=== PATIENT | female | born 1945 | race Caucasian/White ===

== ENCOUNTER → 2017-12-14 | Outpatient (CLI) | payer MEDICARE ==
[2017-12-14 09:46] VITALS: BP 113/56; PULSE 49; RESP 18; TEMP 96.6; BMI 22.8
--- NOTE | 2017-12-14 11:20 | P.HPOB ---
History of Present Illness H&P Date: 12/14/17 Chief Complaint: The patient's her for her routine gynecologic exam. This is a 71-year-old with an LMP of 1995. The patient status post vaginal hysterectomy for prolapse. The patient states has been many years since her last pelvic exam. She did experience some vulvar symptoms consisting of pruritus about one year ago. More recently it seemed to get worse and she notice small vulvar bumps that were the size of a small BB. She says her told her that the vulva looked red and irritated. There were small areas of bleeding in the skin and she has also noticed the blood after intercourse. She was seen by Angie in Dr. Woodward's office who treated her with clobetasol ointment for suspected lichen sclerosis. She states the vulva is feeling much better and she no longer feels the small bumps. The ointment was given to her on 11/21/2017 and she used it for 2 weeks. She also states she has noticed a small bulge at the vaginal opening in the past which seem to interfere slightly with sexual intercourse. She is not noticing it at this time. Review of Systems Weight has been stable. She denies respiratory, cardiac, or G.I. problems. She denies maltreatment or falling. : she denies any problems with urinary leakage. Past Medical History Past Medical History: Hyperlipidemia Additional Past Medical History / Comment(s): PT STATES HAS A HISTORY OF ABNORMAL HEART RHYTHM, NOT SURE WHICH ONE History of Any Multi-Drug Resistant Organisms: None Reported Past Surgical History: Hysterectomy (Vaginal hysterectomy) Additional Past Surgical History / Comment(s): Colonoscopy 2013. Past Anesthesia/Blood Transfusion Reactions: Previous Problems w/ Anesthesia Additional Past Anesthesia/Blood Transfusion Reaction / Comment(s): STATES VERY SLOW TO WAKE WITH HYSTERECTOMY Past Psychological History: No Psychological Hx Reported Smoking Status: Never smoker Past Alcohol Use History: Occasional (0 to 2 per week) Past Drug Use History: None Reported Additional History: She has been since 1965 and is sexually active. 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 - Past Family History Son(s) Family Medical History: AFIB Additional Family Medical History / Comment(s): CARDIAC ARRHYTHMIA Mother Family Medical History: Cancer (Breast cancer) Additional Family Medical History / Comment(s): Maternal aunt also had breast cancer. A niece had uterine cancer. Medications and Allergies Home Medications Medication Instructions Recorded Confirmed Type Atorvastatin [Lipitor] 20 mg PO DAILY 09/05/14 12/14/17 History Digoxin [Lanoxin] 250 mcg PO DAILY 09/05/14 12/14/17 History Aspirin 81 mg PO DAILY 08/14/15 12/14/17 History Biotin 5,000 mg PO DAILY 08/14/15 12/14/17 History Calcium Carbonate/Vitamin D3 1,200 mg PO DAILY 08/14/15 12/14/17 History [Calcium 600 + Vit D Tablet] Magnesium Citrate 133 mg PO DAILY 08/14/15 12/14/17 History Ubidecarenone [Co Q-10] 100 mg PO DAILY 08/14/15 12/14/17 History Vitamin B Complex 1 tab PO DAILY 08/14/15 12/14/17 History Allergies Allergy/AdvReac Type Severity Reaction Status Date / Time Sulfa (Sulfonamide Allergy Rash/Hives Verified 05/08/16 21:16 Antibiotics) Exam - Vital Signs Vital signs: Vital Signs Temp Pulse Resp BP 12/14/17 09:26 96.6 F L 49 L 18 113/56 12/14/17 09:06 96.6 F L 49 L 18 113/56 Intake and Output 12/13/17 12/14/17 12/14/17 22:59 06:59 14:59 Other: Weight 66.678 kg Height 5'6", BMI 23.7. This is a well-developed well-nourished white female who is alert and oriented times 3 in no acute distress. HEENT: Within normal limits. NECK: Supple without mass or thyromegaly. CHEST AND LUNGS: Clear to auscultation. HEART: Regular rate with repeat heart rate of 60 and regular rhythm. BREASTS: Are without mass or discharge. AXILLARY EXAM: Negative for adenopathy. BACK: Negative for CVA tenderness. ABDOMEN: Soft, nontender, without palpable masses. PELVIC EXAM: External genitalia shows moderate atrophy greatest at the labia minora. There is also slight pallor of the labia minora there is minor excoriation consistent with scratched areas on the right labia majora and just inside the introit us at the 5 o'clock position. There are no masses palpable within the vulva. Vagina appears normal with mild to moderate atrophy. There is no evidence of prolapse at rest. With Valsalva there is a grade 1-2 cystocele. Bimanual examination is negative for mass or tenderness. RECTAL EXAM: Rectovaginal exam is negative for mass or tenderness and is negative for occult blood. EXTREMITIES: Nontender. IMPRESSION: 1. 71-year-old menopausal female with status post vaginal hysterectomy for benign reasons. 2. 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 3. Small intermittent vaginal bleeding after intercourse probably secondary to genital atrophy. 4. Grade 1 to 2 cystocele with Valsalva which is minimally symptomatic. PLAN: 1. Pap smears have been discontinued. 2. Self breast awareness was discussed. 3. Mammogram will be due later this year. She states she has been having them done yearly at [facility]. An order slip was given to the patient for this. 4. The patient will continue to use clobetasol ointment PRN for vulvar pruritus. 5. Estrace vaginal cream 1 to 2 g intravaginaland to the introitus 2 times weekly. A written prescription was given to the patient for this since she would like to check prices at different pharmacies. It was written for one tube to be dispensed with 3 refills. 6. She did get a flu shot this past fall. 7. She was instructed to return if she is having problems with vulvar pruritus , increasing bulge, vaginal bleeding or vulvar lesions. 8. She will return in one year and PRN.
== END | disposition home or self-care (01) ==
LOC: WWCWWP 09:06
PROVIDERS: ATTEND Obstetrics & Gynecology
DX: Z53.9 Procedure and treatment not carried out, unspecified reason (principal)

== ENCOUNTER → 2018-12-28 | Outpatient (CLI) | payer MEDICARE ==
--- NOTE | 2018-12-29 10:48 | BD ---
EXAMINATION TYPE: Axial Bone Density DATE OF EXAM: 12/28/2018 COMPARISON: 06.02.2016 CLINICAL HISTORY: M 89.9 Height: 64 Weight: 140.7 FRAXIN RISK QUESTIONS: Alcohol (3 or more units per day): no Family History (Parent hip fracture): no Glucocorticoids (More than 3mos): no (Ex: prednisone, prednisolone, methylprednisolone, dexamethasone, and hydrocortisone). History of Fracture in Adulthood: no Secondary Osteoporosis: 1. Type 1 Diabetes: no 2. Hyperthyroidism: no 3. Menopause before 45: no 4. Malnutrition: no 5. Chronic liver disease: no Rheumatoid Arthritis: no Current Tobacco Use: no RISK FACTORS HISTORY OF: Family History of Osteoporosis: no Active: yes Diet low in dairy products/other sources of calcium: yes Postmenopausal woman: age 61 Lost more than 2 inches in height since high school: no MEDICATIONS: Lipitor, digit, heart meds, blood pressure meds Additional History: EXAM MEASUREMENTS: Bone mineral densitometry was performed using the [employer] System. Bone mineral density as measured about the Lumbar spine is: ----- L1-L4(G/cm2): 1.256 T Score Values are as follows: ----- L2: 1.6 ----- L3: 1.8 ----- L4: 0.1 ----- L1-L4: 0.6 Bone mineral density has: increased 4.8 % since study of: 06.02.2016 Bone mineral density about the R hip (g/cm2): 0.834 Bone mineral density about the L hip (g/cm2): 0.906 T Score values are as follows: -----R Neck: -1.5 -----L Neck: -0.9 -----R Total: -1.1 -----L Total: -1.2 Bone mineral density has: increased 0.5 % since study of: 06.02.2016 IMPRESSION: Osteopenia (T Score between -2.5 and -1). There is slightly increased risk of fracture and the patient may be considered for treatment. Re-Screen 2-5 years. NOTE: T-SCORE=SD OF THE YOUNG ADULT MEAN.
== END | disposition home or self-care (01) ==
LOC: RADBDWWP 16:19
PROVIDERS: ATTEND Family Medicine
DX: M85.80 Other specified disorders of bone density and structure, unspecified site (principal)
CPT/HCPCS: 77080

== ENCOUNTER → 2020-05-29 | Outpatient (CLI) | payer MEDICARE ==
--- NOTE | 2020-05-29 20:43 | XR ---
EXAMINATION TYPE: XR shoulder complete RT DATE OF EXAM: 05/29/2020 COMPARISON: NONE HISTORY: Pain TECHNIQUE: Shoulder examined in 3 views FINDINGS: The humeral head articulates with the glenoid. The acromio-clavicular junction is normal. No acute fractures or dislocations are evident. A follow up study can be performed 7-10 days from acute trauma for continued pain. IMPRESSION: 1. Normal three-view right Shoulder
== END | disposition home or self-care (01) ==
LOC: RADXRYALE 16:05
PROVIDERS: ATTEND Family Medicine
DX: M25.511 Pain in right shoulder (principal)

== ENCOUNTER → 2021-04-02 | Day surgery (SDC) | payer MEDICARE ==
[2021-04-01 08:44] VITALS: BMI 21.9
[~2021-04-02] MED LIST: GLUCAGON 1 MG/ML VIAL ONE; GLYCOPYRROLATE 0.2 MG/ML 2 ML VIAL ONE; LACTATED RINGERS 1,000 ML IV SCH; LIDOCAINE 1% INJ 10MG/ML (20 ML MDV) ONE; PROPOFOL 10 MG/ML 20 ML VIAL IV ONE
[2021-04-02 10:31] VITALS: RESP 16; TEMP 97.3
--- NOTE | 2021-04-02 11:01 | P.GSHP ---
History of Present Illness H&P Date: 04/02/21 Chief Complaint: GI bleed Is a 75-year-old female who presents today for colonoscopy. Patient issues with GI bleed. Past Medical History Past Medical History: Hyperlipidemia Additional Past Medical History / Comment(s): Cardiac arrythmia, unknown diagnosis. Positive Cologard. History of Any Multi-Drug Resistant Organisms: None Reported Past Surgical History: Hysterectomy Additional Past Surgical History / Comment(s): Colonoscopy 2013. Past Anesthesia/Blood Transfusion Reactions: Previous Problems w/ Anesthesia, Motion Sickness Additional Past Anesthesia/Blood Transfusion Reaction / Comment(s): STATES VERY SLOW TO WAKE WITH HYSTERECTOMY Smoking Status: Never smoker - Past Family History Mother Family Medical History: Cancer Additional Family Medical History / Comment(s): Maternal aunt also had breast cancer. A niece had uterine cancer. Son(s) Family Medical History: AFIB Additional Family Medical History / Comment(s): CARDIAC ARRHYTHMIA Medications and Allergies Home Medications Medication Instructions Recorded Confirmed Type Atorvastatin [Lipitor] 20 mg PO DAILY 09/05/14 04/02/21 History Digoxin [Lanoxin] 250 mcg PO DAILY 09/05/14 04/02/21 History Aspirin 81 mg PO DAILY 08/14/15 04/01/21 History Biotin 5,000 mg PO DAILY 08/14/15 04/02/21 History Calcium Carbonate/Vitamin D3 1,200 mg PO DAILY 08/14/15 04/01/21 History [Calcium 600 + Vit D Tablet] Magnesium Citrate 133 mg PO DAILY 08/14/15 04/01/21 History Ubidecarenone [Co Q-10] 100 mg PO DAILY 08/14/15 04/01/21 History Vitamin B Complex 1 tab PO DAILY 08/14/15 04/01/21 History Metoprolol Tartrate [Lopressor] 12.5 mg PO DAILY 04/01/21 04/02/21 History Allergies Allergy/AdvReac Type Severity Reaction Status Date / Time Sulfa (Sulfonamide Allergy Rash/Hives Verified 04/02/21 10:31 Antibiotics) Surgical - Exam Vital Signs Temp Pulse Resp BP Pulse Ox 97.3 F L 63 16 149/70 99 04/02/21 10:30 04/02/21 10:30 04/02/21 10:30 04/02/21 10:30 04/02/21 10:30 - General well developed, well nourished, no distress - Eyes PERRL - ENT normal pinna - Neck no masses - Respiratory normal expansion - Cardiovascular Rhythm: regular - Abdomen Abdomen: soft, non tender Assessment and Plan Assessment: GI bleed. We'll perform colonoscopy.
--- NOTE | 2021-04-02 11:17 | P.OP ---
Date of Procedure: 04/02/21 Preoperative Diagnosis: GI bleed Postoperative Diagnosis: Tortuous colon Endoscopy to descending colon Procedure(s) Performed: Colonoscopy Anesthesia: MAC Surgeon: Luis Browne Pathology: none sent Condition: stable Disposition: PACU Description of Procedure: The patient's placed on the endoscopy table in the lateral position. She received IV sedation. The digital rectal exam was performed which revealed no abnormalities. Flexible colonoscope was then placed patient anus and passed throughout the colon. Scope was passed beyond the descending colon secondary to tortuosity valve. Several times made to position the scope however this wasn't possible. Scope was withdrawn. The distal descending colon sigmoid colon appeared normal. Scope was brought back the rectum this was normal. Scope was withdrawn for patient.
[2021-04-02 11:45] VITALS: BP 111/64; PULSE 58
--- NOTE | 2021-04-02 14:42 | XR ---
EXAMINATION TYPE: XR abdomen 1V DATE OF EXAM: 04/02/2021 COMPARISON: NONE HISTORY: Pain TECHNIQUE: Single supine KUB image of the abdomen is obtained FINDINGS: Small bowel demonstrates no evidence for dilatation or air fluid levels. Gas and fecal material is seen in non-distended colon. No convincing evidence for pneumoperitoneum. No unusual calcifications. The lung bases are clear. The osseous structures are intact. IMPRESSION: 1. Overall nonobstructive bowel gas pattern.
== END | disposition home or self-care (01) ==
LOC: ORWHC2ENDO 10:07
PROVIDERS: ATTEND Surgery
DX: Q43.8 Other specified congenital malformations of intestine (principal); I10 Essential (primary) hypertension; E78.5 Hyperlipidemia, unspecified; Z79.82 Long term (current) use of aspirin; Z80.3 Family history of malignant neoplasm of breast; Z88.2 Allergy status to sulfonamides
CPT/HCPCS: 74018; 45378; J1610; J2001; J2704

== ENCOUNTER → 2021-04-03 | Outpatient (CLI) | payer MEDICARE ==
--- NOTE | 2021-04-03 18:35 | FL ---
EXAMINATION TYPE: FL barium enema DATE OF EXAM: 04/03/2021 COMPARISON: None HISTORY: Incomplete colonoscopy TECHNIQUE: Double air contrast technique. Barium followed by air was refluxed into the colon to the c ecum. Appendix identified. Multiple overhead radiographs and fluoroscopic spot images were obtained. FINDINGS: The patient leaked air and barium following the procedure but as the images were being obta ined. There is partial decompression of the colon during the exam. This will add to limitation on the evaluation. Persistent suspicious filling defects are not evident. No persistent suspicious areas or circumferent ial narrowing are evident. Crosstable lateral views are nondiagnostic for the presacral space. There is moderate barium retention in postevacuation films. Fluoroscopy time: 2 minutes 44 seconds Images: 18 IMPRESSION: 1. No suspicious acute changes within the colon on double air contrast barium enema.
== END | disposition home or self-care (01) ==
LOC: RADFLMAIN 08:49
PROVIDERS: ATTEND Surgery
DX: Z04.89 Encounter for examination and observation for other specified reasons (principal)
CPT/HCPCS: 74270

== ENCOUNTER 2021-05-05 02:52 | Emergency (ER) | payer MEDICARE ==
[2021-05-05 03:12] VITALS: RESP 18
[2021-05-05] MEDS ORDERED: DEXAMETHASONE SOD PHOSPHATE 10 MG/ML 1 ML VIAL IV STA (03:15)
[2021-05-05] MEDS ORDERED: ALBUTEROL HFA INHALER INHALATION STA (03:15)
[2021-05-05] MEDS ORDERED: SODIUM CHLORIDE 0.9% 1,000 ML IV STA (03:15)
[2021-05-05] MEDS ORDERED: ACETAMINOPHEN TAB 500 MG TAB PO STA (03:15)
[2021-05-05] MEDS ORDERED: KETOROLAC 15 MG/ML 1 ML VIAL IVP STA (03:15)
--- NOTE | 2021-05-05 03:16 | ED ---
Fever HPI - General Chief Complaint: Fever Stated Complaint: Covid Time Seen by Provider: 05/05/21 02:59 Source: patient, EMS, RN notes reviewed, old records reviewed Mode of arrival: EMS Limitations: no limitations - History of Present Illness Initial Comments: This is a 75-year-old female to the emergency room today. Patient Dese for evaluation of shortness of breath with cough and congestion known history of patient has fevers or cough or congestion. Patient denies coronavirus infection hospitals recently diagnosed MD Complaint: fever, malaise, weakness, other (Cough and shortness of breath) -: days(s) Temperature Source: subjective Context: sick contacts, multiple patients with similar symptoms Associated Symptoms: myalgias, sore throat, cough, shortness of breath Treatments Prior to Arrival: none - Related Data Home Medications Medication Instructions Recorded Confirmed Atorvastatin [Lipitor] 20 mg PO DAILY 09/05/14 04/02/21 Digoxin [Lanoxin] 250 mcg PO DAILY 09/05/14 04/02/21 Aspirin 81 mg PO DAILY 08/14/15 04/01/21 Biotin 5,000 mg PO DAILY 08/14/15 04/02/21 Calcium Carbonate/Vitamin D3 1,200 mg PO DAILY 08/14/15 04/01/21 [Calcium 600 + Vit D Tablet] Magnesium Citrate 133 mg PO DAILY 08/14/15 04/01/21 Ubidecarenone [Co Q-10] 100 mg PO DAILY 08/14/15 04/01/21 Vitamin B Complex 1 tab PO DAILY 08/14/15 04/01/21 Metoprolol Tartrate [Lopressor] 12.5 mg PO DAILY 04/01/21 04/02/21 Allergies Allergy/AdvReac Type Severity Reaction Status Date / Time Sulfa (Sulfonamide Allergy Rash/Hives Verified 04/02/21 10:31 Antibiotics) Review of Systems ROS Statement: Those systems with pertinent positive or pertinent negative responses have been documented in the HPI. ROS Other: All systems not noted in ROS Statement are negative. Past Medical History Past Medical History: Hyperlipidemia Additional Past Medical History / Comment(s): Cardiac arrythmia, unknown diagnosis. Positive Cologard. History of Any Multi-Drug Resistant Organisms: None Reported Past Surgical History: Hysterectomy Additional Past Surgical History / Comment(s): Colonoscopy 2013. Past Anesthesia/Blood Transfusion Reactions: Previous Problems w/ Anesthesia, Motion Sickness Additional Past Anesthesia/Blood Transfusion Reaction / Comment(s): STATES VERY SLOW TO WAKE WITH HYSTERECTOMY Past Psychological History: No Psychological Hx Reported Smoking Status: Never smoker Past Alcohol Use History: Occasional Past Drug Use History: None Reported - Past Family History Mother Family Medical History: Cancer Additional Family Medical History / Comment(s): Maternal aunt also had breast cancer. A niece had uterine cancer. Son(s) Family Medical History: AFIB Additional Family Medical History / Comment(s): CARDIAC ARRHYTHMIA General Exam Limitations: no limitations General appearance: alert, in no apparent distress, anxious Head exam: Present: atraumatic, normocephalic, normal inspection Eye exam: Present: normal appearance, PERRL, EOMI. Absent: scleral icterus, conjunctival injection, periorbital swelling ENT exam: Present: normal exam, mucous membranes moist Neck exam: Present: normal inspection. Absent: tenderness, meningismus, lymphadenopathy Respiratory exam: Present: normal lung sounds bilaterally. Absent: respiratory distress, wheezes, rales, rhonchi, stridor Cardiovascular Exam: Present: regular rate, normal rhythm, normal heart sounds. Absent: systolic murmur, diastolic murmur, rubs, gallop, clicks GI/Abdominal exam: Present: soft, normal bowel sounds. Absent: distended, tenderness, guarding, rebound, rigid Extremities exam: Present: normal inspection, full ROM, normal capillary refill. Absent: tenderness, pedal edema, joint swelling, calf tenderness Back exam: Present: normal inspection Neurological exam: Present: alert, oriented X3, CN II-XII intact Psychiatric exam: Present: normal affect, normal mood Skin exam: Present: warm, dry, intact, normal color. Absent: rash Course Vital Signs 05/05/21 05/05/21 05/05/21 03:05 03:13 05:45 Temperature 98.7 F 98.3 F Pulse Rate 65 68 Respiratory 18 18 18 Rate Blood Pressure 126/71 118/69 O2 Sat by Pulse 95 95 Oximetry 05/05/21 07:01 Temperature Pulse Rate 76 Respiratory 18 Rate Blood Pressure 110/60 O2 Sat by Pulse 96 Oximetry - Reevaluation(s) Reevaluation #1: 05/05/21 Record is reviewed Patient symptoms are improved here in the emergency department Patient informed of results and questions answered Patient is in no acute distress Medical Decision Making - Medical Decision Making 75 female to the emergency room today. Patient presents today for evaluation of positive coronavirus. Patient presents today for evaluation of positive coronavirus., Breathing is appropriate currently without significant shortness of breath. Patient can be discharged home return if symptoms worsen - Lab Data Result diagrams: 05/05/21 03:28 05/05/21 03:28 Lab Results 05/05/21 05/05/21 05/05/21 Range/Units 03:28 03:28 03:28 WBC 4.4 (3.8-10.6) k/uL RBC 4.76 (3.80-5.40) m/uL Hgb 14.9 (11.4-16.0) gm/dL Hct 44.4 (34.0-46.0) % MCV 93.2 (80.0-100.0) fL MCH 31.3 (25.0-35.0) pg MCHC 33.6 (31.0-37.0) g/dL RDW 14.1 (11.5-15.5) % Plt Count 185 (150-450) k/uL MPV 7.2 Neutrophils % 60 % Lymphocytes % 30 % Monocytes % 6 % Eosinophils % 0 % Basophils % 1 % Neutrophils # 2.6 (1.3-7.7) k/uL Lymphocytes # 1.3 (1.0-4.8) k/uL Monocytes # 0.3 (0-1.0) k/uL Eosinophils # 0.0 (0-0.7) k/uL Basophils # 0.0 (0-0.2) k/uL Poikilocytosis Slight PT 9.8 (9.0-12.0) sec INR 0.9 (<1.2) APTT 24.9 (22.0-30.0) sec Sodium 134 L (137-145) mmol/L Potassium 3.8 (3.5-5.1) mmol/L Chloride 104 (98-107) mmol/L Carbon Dioxide 24 (22-30) mmol/L Anion Gap 6 mmol/L BUN 8 (7-17) mg/dL Creatinine 0.51 L (0.52-1.04) mg/dL Est GFR (CKD-EPI)AfAm >90 (>60 ml/min/1.73 sqM) Est GFR (CKD-EPI)NonAf >90 (>60 ml/min/1.73 sqM) Glucose 102 H (74-99) mg/dL Plasma Lactic Acid Chuck (0.7-2.0) mmol/L Calcium 8.7 (8.4-10.2) mg/dL Magnesium 1.9 (1.6-2.3) mg/dL Ferritin 804.5 H (10.0-291.0) ng/mL Total Bilirubin 0.6 (0.2-1.3) mg/dL AST 39 H (14-36) U/L ALT 33 (4-34) U/L Alkaline Phosphatase 121 (38-126) U/L Lactate Dehydrogenase 572 (313-618) U/L C-Reactive Protein 0.8 (<1.0) mg/dL Total Protein 6.6 (6.3-8.2) g/dL Albumin 3.8 (3.5-5.0) g/dL Coronavirus (PCR) (Not Detectd) 05/05/21 05/05/21 Range/Units 03:28 03:28 WBC (3.8-10.6) k/uL RBC (3.80-5.40) m/uL Hgb (11.4-16.0) gm/dL Hct (34.0-46.0) % MCV (80.0-100.0) fL MCH (25.0-35.0) pg MCHC (31.0-37.0) g/dL RDW (11.5-15.5) % Plt Count (150-450) k/uL MPV Neutrophils % % Lymphocytes % % Monocytes % % Eosinophils % % Basophils % % Neutrophils # (1.3-7.7) k/uL Lymphocytes # (1.0-4.8) k/uL Monocytes # (0-1.0) k/uL Eosinophils # (0-0.7) k/uL Basophils # (0-0.2) k/uL Poikilocytosis PT (9.0-12.0) sec INR (<1.2) APTT (22.0-30.0) sec Sodium (137-145) mmol/L Potassium (3.5-5.1) mmol/L Chloride (98-107) mmol/L Carbon Dioxide (22-30) mmol/L Anion Gap mmol/L BUN (7-17) mg/dL Creatinine (0.52-1.04) mg/dL Est GFR (CKD-EPI)AfAm (>60 ml/min/1.73 sqM) Est GFR (CKD-EPI)NonAf (>60 ml/min/1.73 sqM) Glucose (74-99) mg/dL Plasma Lactic Acid Chuck 0.7 (0.7-2.0) mmol/L Calcium (8.4-10.2) mg/dL Magnesium (1.6-2.3) mg/dL Ferritin (10.0-291.0) ng/mL Total Bilirubin (0.2-1.3) mg/dL AST (14-36) U/L ALT (4-34) U/L Alkaline Phosphatase (38-126) U/L Lactate Dehydrogenase (313-618) U/L C-Reactive Protein (<1.0) mg/dL Total Protein (6.3-8.2) g/dL Albumin (3.5-5.0) g/dL Coronavirus (PCR) Detected A (Not Detectd) - EKG Data -: EKG Interpreted by Me (EKG is sinus rhythm 66 NH 142 QRS 92 QTC 406) - Radiology Data Radiology results: report reviewed (CHest XR is positive for mild pneumonia), image reviewed Disposition Clinical Impression: Coronavirus infection, COVID-19, Pneumonia due to COVID-19 virus, Fever Disposition: HOME SELF-CARE Condition: Good Instructions (If sedation given, give patient instructions): Coronavirus Disease 2019 (COVID-19) Is patient prescribed a controlled substance at d/c from ED?: No Referrals: Sergei Mercedes DO [Primary Care Provider] - 1-2 days
[2021-05-05 04:06] LABS: Basophils % (A) 1 %; Eosinophils % (A) 0 %; HCT 44.4 % (34.0-46.0); HGB 14.9 gm/dL (11.4-16.0); Lymphocytes # (A) 1.3 k/uL (1.0-4.8); Lymphocytes % (A) 30 %; MCH 31.3 pg (25.0-35.0); MCHC 33.6 g/dL (31.0-37.0); MCV 93.2 fL (80.0-100.0); Mean Platelet Volume 7.2; Monocytes # (A) 0.3 k/uL (0-1.0); Monocytes % (A) 6 %; Neutrophils # (A) 2.6 k/uL (1.3-7.7); Neutrophils % (A) 60 %; Platelet Count 185 k/uL (150-450); Poikilocytosis Slight; RBC 4.76 m/uL (3.80-5.40); RDW 14.1 % (11.5-15.5); WBC 4.4 k/uL (3.8-10.6)
--- NOTE | 2021-05-05 04:09 | XR ---
EXAMINATION TYPE: XR chest 1V portable DATE OF EXAM: 05/05/2021 COMPARISON: 05/08/2016 HISTORY: Pneumonia TECHNIQUE: Single view FINDINGS: Heart is normal. There is some interstitial infiltrate in the left lower lobe. Right lung i s fairly clear. There are no hilar masses. The bony thorax is intact. IMPRESSION: There is some new mild pneumonia left lower lobe compared to old exam.
[2021-05-05 04:24] LABS: ALT 33 U/L (4-34); AST 39 U/L (14-36); African American GFR (CKD) >90 (>60 ml/min/1.73 sqM); Albumin 3.8 g/dL (3.5-5.0); Alkaline Phosphatase 121 U/L (38-126); Anion Gap 6 mmol/L; Blood Urea Nitrogen 8 mg/dL (7-17); C Reactive Protein 0.8 mg/dL (<1.0); Calcium 8.7 mg/dL (8.4-10.2); Carbon Dioxide 24 mmol/L (22-30); Chloride 104 mmol/L (98-107); Glucose 102 mg/dL (74-99); LDH 572 U/L (313-618); Magnesium 1.9 mg/dL (1.6-2.3); Non-African American GFR(CKD) >90 (>60 ml/min/1.73 sqM); Potassium 3.8 mmol/L (3.5-5.1); Sodium 134 mmol/L (137-145); Total Bilirubin 0.6 mg/dL (0.2-1.3); Total Protein 6.6 g/dL (6.3-8.2)
[2021-05-05 04:42] LABS: INR 0.9 (<1.2); Partial Thromboplastin Time 24.9 sec (22.0-30.0); Prothrombin Time 9.8 sec (9.0-12.0)
[2021-05-05] MEDS ORDERED: CASIRIVIMAB (REGN10933) (EUA) 600 MG, IMDEVIMAB (REGN10987) (EUA) 600 MG in SODIUM CHLO... IVPB ONE (05:30)
[2021-05-05] MEDS ORDERED: SODIUM CHLORIDE 0.9% 50 ML IVPB ONE (05:30)
[2021-05-05 05:48] VITALS: TEMP 98.3
[2021-05-05 07:02] VITALS: BP 110/60; PULSE 76
[2021-05-05 10:31] LABS: Ferritin 804.5 ng/mL (10.0-291.0)
== END 2021-05-05 08:48 | disposition home or self-care (01) ==
LOC: EC 02:52
DX: U07.1 COVID-19 (principal); J12.82 Pneumonia due to coronavirus disease 2019; R50.9 Fever, unspecified; E78.5 Hyperlipidemia, unspecified; Z88.2 Allergy status to sulfonamides; Z79.82 Long term (current) use of aspirin; Z90.710 Acquired absence of both cervix and uterus
CPT/HCPCS: 99285; 96365; 96375 ×2; 96361 ×2; 36415; 94640; 93005; 80053; 82728; 83605; 83615; 83735; 85025; 85610; 85730; 86140; 87040; 87635; 71045; J1100; J1885; Q0243